=== PATIENT | female | born 1985 | race Caucasian/White ===

== ENCOUNTER 2019-08-07 16:16 | Emergency (ER) | payer BC ==
[~2019-08-07] VITALS: Ht 170.2 cm; Wt 78.0 kg
[2019-08-07] MEDS ORDERED: NEURONTIN800 MG PO (17:00)
[2019-08-07] MEDS ORDERED: CRYSELLE1 EACH PO (17:00)
[2019-08-07] MEDS ORDERED: IBUPROFEN800 MG PO (17:01)
== END 2019-08-07 17:11 | disposition home or self-care (01) ==
LOC: ED 16:16
DX: B34.9 Viral infection, unspecified (principal)
CPT/HCPCS: 99283

== ENCOUNTER 2020-07-29 23:27 | Emergency (ER) | payer BC ==
[~2020-07-29] VITALS: Ht 170.2 cm; Wt 78.0 kg
[~2020-07-29 23:27] MED LIST: CRYSELLE1 EACH PO; IBUPROFEN800 MG PO; NEURONTIN800 MG PO
== END 2020-07-30 02:39 | disposition home or self-care (01) ==
LOC: ED 23:27
DX: F41.9 Anxiety disorder, unspecified (principal); R42 Dizziness and giddiness; R20.2 Paresthesia of skin; Z88.8 Allergy status to other drugs, medicaments and biological substances; Z91.013 Allergy to seafood; Z79.899 Other long term (current) drug therapy
CPT/HCPCS: 96374; 99284-25; J1200

== ENCOUNTER 2024-06-18 09:10 | Emergency (ER) | payer BC ==
[~2024-06-18] VITALS: Ht 170.2 cm; Wt 96.6 kg
[2024-06-18] MEDS ORDERED: BACLOFEN10 MG PO (09:27)
[2024-06-18] MEDS ORDERED: CYCLOBENZAPRINE HCL 10 MG TAB PO ONE (10:00)
[2024-06-18] MEDS ORDERED: LIDOCAINE HCL 4% 1 EACH PATCH TD ONE (10:00)
[2024-06-18] MEDS ORDERED: ACETAMINOPHEN 325 MG TAB PO ONE (10:00)
[2024-06-18] MEDS ORDERED: OXYCODONE/APAP 10/325 TAB PO ONE (10:00)
[2024-06-18] MEDS ORDERED: METHYLPREDNISOLO4 M1 PO (15:15)
[2024-06-18] MEDS ORDERED: ONDANSETRON ODT8 MG PO (15:15)
[2024-06-18] MEDS ORDERED: OXYCODONE HCL5 MG PO (15:15)
[2024-06-18 15:24] VITALS: BP 135/73
[2024-06-18] MEDS ORDERED: LIDOCAINE PATCH REMOVAL 1 EA TD SCH (21:00)
== END 2024-06-18 15:24 | disposition home or self-care (01) ==
LOC: ED 09:10
DX: M54.50 Low back pain, unspecified (principal); M48.061 Spinal stenosis, lumbar region without neurogenic claudication; Z88.8 Allergy status to other drugs, medicaments and biological substances; Z91.013 Allergy to seafood; Z79.899 Other long term (current) drug therapy
CPT/HCPCS: 72158; 99283-25; A9270; A9577